=== PATIENT | female | born 1970 | race Caucasian/White ===

== ENCOUNTER 2017-05-23 17:03 | Emergency (ER) | payer BC ==
[2017-05-23] MEDS ORDERED: methylPREDNISolone Sodium Succinate 125 MG/2 ML SDV IVPUSH ONE (17:39)
[2017-05-23] MEDS ORDERED: Sodium Chloride 0.9% 2.5 ML Syringe FLUSH PRN (17:39)
[2017-05-23] MEDS ORDERED: Sodium Chloride 0.9% 10 ML Syringe FLUSH PRN (17:39)
[2017-05-23 18:28] LABS: CHLORIDE,CL 109 mmol/L (98-110); SODIUM,NA 139 mmol/L (136-146)
--- NOTE | 2017-05-23 18:36 | EDM.PDOC ---
ED HPI GENERAL MEDICAL PROBLEM - General Chief Complaint: Neck Problem Stated Complaint: PT HAS NECK PAIN AND BODY PAIN Time Seen by Provider: 05/23/17 18:30 Source of Information: Reports: Patient History Limitations: Reports: No Limitations - History of Present Illness INITIAL COMMENTS - FREE TEXT/NARRATIVE: HISTORY AND PHYSICAL: []46-year-old female presenting with neck and body pain History of Present Illness: []She has history of arthritis she received a cortisone injection recently to her right shoulder She has had steroids in the past Patient took Flexeril and a medication at home without much relief Review of Systems: As per history of present illness and below otherwise all systems reviewed and negative. Past medical history: As per history of present illness and as reviewed below otherwise noncontributory. Surgical history: As per history of present illness and as reviewed below otherwise noncontributory. Social history: No reported history of drug or alcohol abuse. Family history: As per history of present illness and as reviewed below otherwise noncontributory. Physical exam: Alert and oriented female answering questions appropriatelyof breath noted HEENT: Atraumatic, normocehpalic, pupils reactive, negative for conjunctival pallor or scleral icterus, mucous membranes moist, throat clear, neck supple, nontender, trachea midline. Lungs: Clear to auscultation, breath sounds equal bilaterally, chest non tender. Heart: S1S2, regular, negative for clicks, rubs, or JVD. Abdomen: Soft, nondistended, nontender. Negative for masses or hepatossplenmegaly. Negative for costovertebral tenderness. Pelvis: Stable nontender. Genitourinary: Deferred. Rectal: Deferred Extremities: Atraumatic, negative for cords or calf pain. Neurovascular unremarkable. Neuro: Awake, alert, oriented. Cranial nerves II through XII unremarkable. Cerebellum unremarkable. Motor and sensory unremarkable throughout. Exam nonfocal. Diagnostics: [] Therapeutics: []SoluMedrol IM Impression: []Arthritic flareup Plan: []Discharge to home Place on Medrol Dosepak follow up with your primary care Definitive disposition and diagnosis as appropriate pending reevaluation and review of above. neck area Pain Score (Numeric/FACES): 6 - Related Data Allergies Allergy/AdvReac Type Severity Reaction Status Date / Time pine nut Allergy Anaphylactic Verified 05/23/17 17:16 Shock propoxyphene [From Darvon] Allergy Hallucinati Verified 05/23/17 17:16 ons Home Meds: Home Meds Albuterol [IJP: Ventolin HFA] 1 inh INH ASDIRECTED 05/23/17 [History] Meloxicam [Mobic] 1 tab PO BID 05/23/17 [History] methylPREDNISolone [Medrol] 4 mg PO ASDIRECTED #1 dosepk 05/23/17 [Rx] Past Medical History HEENT History: Reports: None Cardiovascular History: Reports: None Respiratory History: Reports: Asthma Gastrointestinal History: Reports: None Genitourinary History: Reports: None 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: Musculoskeletal History: Reports: Arthritis, Other (See Below) Other Musculoskeletal History: spodylosis Neurological History: Reports: None Psychiatric History: Reports: None Endocrine/Metabolic History: Reports: None Hematologic History: Reports: None Immunologic History: Reports: None Oncologic (Cancer) History: Reports: None Dermatologic History: Reports: None - Infectious Disease History Infectious Disease History: Reports: None - Past Surgical History GI Surgical History: Reports: Appendectomy Female Surgical History: Reports: None Social & Family History - Family History Family Medical History: Noncontributory - Tobacco Use Smoking Status *Q: Current Every Day Smoker Years of Tobacco use: 30 Packs/Tins Daily: 1 - Caffeine Use Caffeine Use: Reports: Coffee - Recreational Drug Use Recreational Drug Use: No Review of Systems - Review of Systems Review Of Systems: ROS reveals no pertinent complaints other than HPI. ED EXAM, GENERAL - Physical Exam Exam: See Below (see dictation) Course - Vital Signs Last Recorded V/S: Last Vital Signs Temp 36.6 C 05/23/17 17:18 Pulse 90 05/23/17 17:18 Resp 18 05/23/17 17:18 BP 125/88 05/23/17 17:18 Pulse Ox 98 05/23/17 17:18 - Orders/Labs/Meds Orders: Active Orders 24 hr Category Date Time Status Sodium Chloride 0.9% [Saline Flush] Med 05/23/17 17:39 Active 10 ml FLUSH ASDIRECTED PRN Sodium Chloride 0.9% [Saline Flush] Med 05/23/17 17:39 Active 2.5 ml FLUSH ASDIRECTED PRN Saline Lock Insert [OM.PC] Stat Oth 05/23/17 17:38 Ordered Medication Orders Sodium Chloride (Saline Flush) 10 ml FLUSH ASDIRECTED PRN PRN Reason: Keep Vein Open Last Admin: 05/23/17 18:02 Dose: 10 ml Sodium Chloride (Saline Flush) 2.5 ml FLUSH ASDIRECTED PRN PRN Reason: Keep Vein Open Last Admin: 05/23/17 18:03 Dose: 2.5 ml Labs: Laboratory Tests 05/23/17 05/23/17 Range/Units 18:02 18:02 WBC 7.39 (4.0-11.0) K/uL RBC 5.39 (4.30-5.90) M/uL Hgb 15.2 (12.0-16.0) g/dL Hct 46.0 (36.0-46.0) % MCV 85.3 (80.0-98.0) fL MCH 28.2 (27.0-32.0) pg MCHC 33.0 (31.0-37.0) g/dL RDW Std Deviation 49.4 (28.0-62.0) fl RDW Coeff of Linda 16 H (11.0-15.0) % Plt Count 418 H (150-400) K/uL MPV 9.50 (7.40-12.00) fL Neut % (Auto) 47.4 L (48.0-80.0) % Lymph % (Auto) 32.3 (16.0-40.0) % [place] % (Auto) 15.3 H (0.0-15.0) % Eos % (Auto) 4.6 (0.0-7.0) % Baso % (Auto) 0.4 (0.0-1.5) % Neut # (Auto) 3.5 (1.4-5.7) K/uL Lymph # (Auto) 2.4 (0.6-2.4) K/uL [place] # (Auto) 1.1 H (0.0-0.8) K/uL Eos # (Auto) 0.3 (0.0-0.7) K/uL Baso # (Auto) 0.0 (0.0-0.1) K/uL Nucleated RBC % 0.0 /100WBC Nucleated RBCs # 0 K/uL Sodium 139 (136-146) mmol/L Potassium 4.1 (3.5-5.1) mmol/L Chloride 109 (98-110) mmol/L Carbon Dioxide 21 (21-31) mmol/L BUN 13 (6.0-23.0) mg/dL Creatinine 0.7 (0.6-1.5) mg/dL Est Cr Clr Drug Dosing 99.73 mL/min Estimated GFR (MDRD) > 60.0 ml/min Glucose 116 H (60-110) mg/dL Calcium 9.2 (8.8-10.8) mg/dL Total Bilirubin 0.2 (0.1-1.5) mg/dL AST 16 (5-40) IU/L ALT 17 (8-54) IU/L Alkaline Phosphatase 52 (40-150) Total Protein 7.2 (6.0-8.0) g/dL Albumin 3.7 (3.5-5.0) g/dL Globulin 3.5 (2.0-3.5) g/dL Albumin/Globulin Ratio 1.1 L (1.3-2.8) Meds: Medications Generic Name Dose Route Start Last Admin Trade Name Freq PRN Reason Stop Dose Admin Sodium Chloride 10 ml 05/23/17 17:39 05/23/17 18:02 Saline Flush FLUSH 10 ml ASDIRECTED PRN Administration Keep Vein Open Sodium Chloride 2.5 ml 05/23/17 17:39 05/23/17 18:03 Saline Flush FLUSH 2.5 ml ASDIRECTED PRN Administration Keep Vein Open Discontinued Medications Generic Name Dose Route Start Last Admin Trade Name Freq PRN Reason Stop Dose Admin Methylprednisolone Sodium Succinate 125 mg 05/23/17 17:39 05/23/17 18:02 Solu-Medrol IVPUSH 05/23/17 17:40 125 mg ONETIME ONE Administration Morphine Sulfate 2 mg 05/23/17 18:37 05/23/17 18:42 Morphine IV 05/23/17 18:38 2 mg ONETIME ONE Administration Departure - Departure Time of Disposition: 18:35 Disposition: Home, Self-Care 01 Condition: Good Clinical Impression: Pain - Discharge Information Prescriptions: methylPREDNISolone [Medrol] 4 mg PO ASDIRECTED #1 dosepk Referrals: PCP,None [Primary Care Provider] - Forms: ED Department Discharge Additional Instructions: The following information is given to patients seen in the emergency department who are being discharged to home. This information is to outline your options for follow-up care. We provide all patients seen in our emergency department with a follow-up referral. The need for follow-up, as well as the timing and circumstances, are variable depending upon the specifics of your emergency department visit. If you don't have a primary care physician on staff, we will provide you with a referral. We always advise you to contact your personal physician following an emergency department visit to inform them of the circumstance of the visit and for follow-up with them and/or the need for any referrals to a consulting specialist. The emergency department will also refer you to a specialist when appropriate. This referral assures that you have the opportunity for followup care with a specialist. All of these measure are taken in an effort to provide you with optimal care, which includes your followup. Under all circumstances we always encourage you to contact your private physician who remains a resource for coordinating your care. When calling for followup care, please make the office aware that this follow-up is from your recent emergency room visit. If for any reason you are refused follow-up, please contact the [facility] emergency department at and asked to speak to the emergency department charge nurse. Medrol Dosepak was sent to your pharmacy of choice Follow-up with your provider Thursday - My Orders Last 24 Hours: My Active Orders 05/23/17 17:38 Saline Lock Insert [OM.PC] Stat 05/23/17 17:39 Sodium Chloride 0.9% [Saline Flush] 10 ml FLUSH ASDIRECTED PRN Sodium Chloride 0.9% [Saline Flush] 2.5 ml FLUSH ASDIRECTED PRN - Assessment/Plan Last 24 Hours: My Active Orders 05/23/17 17:38 Saline Lock Insert [OM.PC] Stat 05/23/17 17:39 Sodium Chloride 0.9% [Saline Flush] 10 ml FLUSH ASDIRECTED PRN Sodium Chloride 0.9% [Saline Flush] 2.5 ml FLUSH ASDIRECTED PRN
[2017-05-23] MEDS ORDERED: Morphine 10 MG/ML Syringe IV ONE (18:37)
[2017-05-23 19:00] VITALS: BP 131/84
== END 2017-05-23 18:54 | disposition home or self-care (01) ==
LOC: MW.ED 17:03
DX: M19.90 Unspecified osteoarthritis, unspecified site (principal); M54.2 Cervicalgia; F17.210 Nicotine dependence, cigarettes, uncomplicated
CPT/HCPCS: 36415; 80053; 85025; 96374; 96375; 99283; J2270; J2930; 99282

== ENCOUNTER 2018-10-20 18:33 | Emergency (ER) | payer BC ==
[2018-10-20 19:20] VITALS: BP 124/75
[2018-10-20] MEDS ORDERED: Acetaminophen/HYDROcodone 325-7.5 MG Tab PO ONE (19:24)
[2018-10-20] MEDS ORDERED: Benzocaine 20% Topical Spray UD MUCMEM ONE (19:24)
[2018-10-20] MEDS ORDERED: Lidocaine 2% Viscous Solution 15 ML Cup PO ONE (19:24)
--- NOTE | 2018-10-20 19:28 | EDM.PDOC ---
ED HPI GENERAL MEDICAL PROBLEM - General Chief Complaint: General Stated Complaint: BAD TOOTH Time Seen by Provider: 10/20/18 19:20 - History of Present Illness INITIAL COMMENTS - FREE TEXT/NARRATIVE: HISTORY AND PHYSICAL: History of present illness: The patient is a 48-year-old female who presents with known history of problem with her left upper premolar tooth, tooth #13, and she's been putting off getting it fixed as the filling had fallen out but she had no pain. She presents because of new pain that started the last 24 hours. She has an appointment tomorrow with the dentist for evaluation and has placed an over-the- counter temporary filling but is having persistent pain and she is concerned about some swelling. She otherwise has no systemic complaints Review of systems: As per history of present illness and below otherwise all systems reviewed and negative. Past medical history: As per history of present illness and as reviewed below otherwise noncontributory. Surgical history: As per history of present illness and as reviewed below otherwise noncontributory. Social history: No reported history of drug or alcohol abuse. Family history: As per history of present illness and as reviewed below otherwise noncontributory. Physical exam: HEENT: Atraumatic, normocephalic, pupils reactive, negative for conjunctival pallor or scleral icterus, mucous membranes moist, throat clear, neck supple, nontender, trachea midline. Gross facial swelling appreciated, there are multiple old silver fillings and some missing teeth but the tooth in question is the left upper premolar, #13 where there is a temporary filling in place as an obvious defect in the tooth laterally, there is some minimal gum swelling but no fluctuance Lungs: Clear to auscultation, breath sounds equal bilaterally, chest nontender. Heart: S1S2, regular and rhythm no overt murmurs Abdomen: Soft, nondistended, nontender. NABS Pelvis: Deferred Genitourinary: Deferred. Rectal: Deferred. Extremities: Atraumatic, full range of motion. Neurovascular unremarkable. Neuro: Awake, alert, oriented. Cranial nerves II through XII unremarkable. Cerebellum unremarkable. Motor and sensory unremarkable throughout. Exam nonfocal. Diagnostics: [] Therapeutics: Dental balls, [place] Impression: Dental pain with dental fracture Definitive disposition and diagnosis as appropriate pending reevaluation and review of above. 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: Musculoskeletal History: Reports: Arthritis, Other (See Below) Other Musculoskeletal History: spodylosis Neurological History: Reports: None Psychiatric History: Reports: None Endocrine/Metabolic History: Reports: None Hematologic History: Reports: None Immunologic History: Reports: None Oncologic (Cancer) History: Reports: None Dermatologic History: Reports: None - Infectious Disease History Infectious Disease History: Reports: None - Past Surgical History GI Surgical History: Reports: Appendectomy Female Surgical History: Reports: None, Breast Implant Social & Family History - Family History Family Medical History: Noncontributory - Tobacco Use Smoking Status *Q: Current Every Day Smoker Years of Tobacco use: 20 Packs/Tins Daily: 1 - Caffeine Use Caffeine Use: Reports: Coffee, Soda - Recreational Drug Use Recreational Drug Use: No ED ROS GENERAL - Review of Systems Review Of Systems: ROS reveals no pertinent complaints other than HPI. ED EXAM, GENERAL - Physical Exam Exam: See Below (See dictation) Course - Vital Signs Last Recorded V/S: Last Vital Signs Temp 36.9 C 10/20/18 19:18 Pulse 83 10/20/18 19:18 Resp 18 10/20/18 19:18 BP 124/75 10/20/18 19:18 Pulse Ox 96 10/20/18 19:18 - Orders/Labs/Meds Orders: Active Orders 24 hr Category Date Time Status Acetaminophen/HYDROcodone [[place] 325-7.5 MG] Med 10/20/18 19:24 Once 1 tab PO ONETIME ONE Benzocaine [Hurricaine One 20%] Med 10/20/18 19:24 Once 2 each MUCMEM ONETIME ONE Lidocaine 2% [Xylocaine 2% Viscous] Med 10/20/18 19:24 Once 15 ml PO ONETIME ONE Departure - Departure Time of Disposition: 19:27 Disposition: Home, Self-Care 01 Condition: Good Clinical Impression: Pain, dental Tooth fracture Qualifiers: Encounter type: initial encounter Fracture type: closed Qualified Code(s): S02.5XXA - Fracture of tooth (traumatic), initial encounter for closed fracture - Discharge Information Referrals: PCP,None [Primary Care Provider] - Additional Instructions: The following information is given to patients seen in the emergency department who are being discharged to home. This information is to outline your options for follow-up care. We provide all patients seen in our emergency department with a follow-up referral. The need for follow-up, as well as the timing and circumstances, are variable depending upon the specifics of your emergency department visit. If you don't have a primary care physician on staff, we will provide you with a referral. We always advise you to contact your personal physician following an emergency department visit to inform them of the circumstance of the visit and for follow-up with them and/or the need for any referrals to a consulting specialist. The emergency department will also refer you to a specialist when appropriate. This referral assures that you have the opportunity for followup care with a specialist. All of these measure are taken in an effort to provide you with optimal care, which includes your followup. Under all circumstances we always encourage you to contact your private physician who remains a resource for coordinating your care. When calling for followup care, please make the office aware that this follow-up is from your recent emergency room visit. If for any reason you are refused follow-up, please contact the [facility] emergency department at and ask to speak to the emergency department charge nurse. [facility] Primary care- Internal Medicine and Family [address] [address] Use dental balls as prescribed to him from the ER for pain management as well as [id number] Tylenol and ibuprofen. Pain pill here that should enable you to get some rest tonight. Please take antibiotics as prescribed, amoxicillin. These keep your appointment tomorrow with the dentist and return to ER as needed and as discussed - My Orders Last 24 Hours: My Active Orders 10/20/18 19:24 Acetaminophen/HYDROcodone [[place] 325-7.5 MG] 1 tab PO ONETIME ONE Benzocaine [Hurricaine One 20%] 2 each MUCMEM ONETIME ONE Lidocaine 2% [Xylocaine 2% Viscous] 15 ml PO ONETIME ONE - Assessment/Plan Last 24 Hours: My Active Orders 10/20/18 19:24 Acetaminophen/HYDROcodone [[place] 325-7.5 MG] 1 tab PO ONETIME ONE Benzocaine [Hurricaine One 20%] 2 each MUCMEM ONETIME ONE Lidocaine 2% [Xylocaine 2% Viscous] 15 ml PO ONETIME ONE
== END 2018-10-20 19:39 | disposition home or self-care (01) ==
LOC: MW.ED 18:33
DX: K03.81 Cracked tooth (principal); Z88.8 Allergy status to other drugs, medicaments and biological substances; Z79.899 Other long term (current) drug therapy; F17.210 Nicotine dependence, cigarettes, uncomplicated
CPT/HCPCS: 99282; A9270

== ENCOUNTER 2019-12-19 16:15 | Emergency (ER) | payer BC ==
[2019-12-19] MEDS ORDERED: Dexamethasone 10 MG/ML SDV IVPUSH ONE (16:29)
[2019-12-19] MEDS ORDERED: Famotidine 20 MG/2 ML SDV IVPUSH ONE (16:29)
[2019-12-19] MEDS ORDERED: diphenhydrAMINE 50 MG/ML SDV IVPUSH ONE (16:29)
[2019-12-19] MEDS ORDERED: Dexamethasone 10 MG/ML SDV ONE (16:30)
[2019-12-19] MEDS ORDERED: diphenhydrAMINE 50 MG/ML SDV ONE (16:30)
[2019-12-19] MEDS ORDERED: Famotidine 20 MG/2 ML SDV ONE (16:30)
[2019-12-19] MEDS ORDERED: Sodium Chloride 0.9% 2.5 ML Syringe FLUSH PRN (16:31)
[2019-12-19] MEDS ORDERED: Sodium Chloride 0.9% 10 ML Syringe FLUSH PRN (16:31)
[2019-12-19] MEDS ORDERED: Sodium Chloride 0.9% 10 ML SDV IV PRN (16:31)
--- NOTE | 2019-12-19 16:39 | EDM.PDOC ---
ED HPI GENERAL MEDICAL PROBLEM - General Chief Complaint: Allergic Reaction Stated Complaint: BREATHING PROBLEMS Time Seen by Provider: 12/19/19 16:21 - History of Present Illness INITIAL COMMENTS - FREE TEXT/NARRATIVE: History of present illness: Patient presents with difficulty breathing itchy lips itchy throat itchy eyes just after receiving her allergy therapy injections at the allergy clinic at 3: 30 PM this afternoon. She is never had this reaction to her treatments before she does have multiple anaphylactic food and environmental allergies. Denies any dizziness lightheadedness but she is having some difficulty breathing and itching no rash nothing seems to make it worse Caroline made it somewhat better prior to arrival [] Review of systems: As per history of present illness and below otherwise all systems reviewed and negative. Past medical history: As per history of present illness and as reviewed below otherwise noncontributory. Surgical history: As per history of present illness and as reviewed below otherwise noncontributory. Social history: No reported history of drug or alcohol abuse. Family history: As per history of present illness and as reviewed below otherwise noncontributory. Physical exam: HEENT: Atraumatic, normocephalic, pupils reactive, negative for conjunctival pallor or scleral icterus, sclera are injected mucous membranes moist, throat clear, neck supple, nontender, trachea midline. She does appear mildly limitus about her face Lungs: Clear to auscultation, breath sounds equal bilaterally, chest nontender. Heart: S1S2, regular, negative for clicks, rubs, or JVD. Abdomen: Soft, nondistended, nontender. Negative for masses or hepatosplenomegaly. Negative for costovertebral tenderness. Pelvis: Stable nontender. Genitourinary: Deferred. Rectal: Deferred. Extremities: Atraumatic, negative for cords or calf pain. Neurovascular unremarkable. Neuro: Awake, alert, oriented. Cranial nerves II through XII unremarkable. Cerebellum unremarkable. Motor and sensory unremarkable throughout. Exam nonfocal. Diagnostics: [] Therapeutics: She received 25 of Benadryl 20 of Pepcid and 10 of Decadron IV as well as 4 puffs of albuterol metered-dose inhaler and she will be observed and reassessed. [] Impression: Allergic reaction [] Plan: [He was reassessed after observation in the ED her vital signs are stable oxygen sats are 99% on room air she feels better would like to go home I prescribed EpiPen autoinjectors for her she is to follow-up with her regular doctor return to the ED if she is worsening] Definitive disposition and diagnosis as appropriate pending reevaluation and review of above. - Related Data Allergies Allergy/AdvReac Type Severity Reaction Status Date / Time pine nut Allergy Anaphylactic Verified 12/19/19 16:25 Shock propoxyphene [From Darvon] Allergy Hallucinati Verified 12/19/19 16:25 ons Home Meds: Home Meds Albuterol [IJP: Ventolin HFA] 1 inh INH ASDIRECTED 05/23/17 [History] Dextroamphetamine/Amphetamine [Adderall] 30 mg PO DAILY 12/19/19 [History] EPINEPHrine [Epipen 2-Sandip] 0.3 mg IJ ONETIME #2 auto.injct MDD 2 12/19/19 [Rx] Fluticasone/Vilanterol [Breo Ellipta 200-25 MCG Inhalation Kit] 1 puff .ROUTE DAILY 12/19/19 [History] Pimecrolimus 1 dose .ROUTE PRN 12/19/19 [History] Past Medical History HEENT History: Reports: None Cardiovascular History: Reports: None Respiratory History: Reports: Asthma Gastrointestinal History: Reports: None Genitourinary History: Reports: None [employer] History: Reports: Musculoskeletal History: Reports: Arthritis, Other (See Below) Other Musculoskeletal History: spodylosis Neurological History: Reports: None Psychiatric History: Reports: None Endocrine/Metabolic History: Reports: None Hematologic History: Reports: None Immunologic History: Reports: None Oncologic (Cancer) History: Reports: None Dermatologic History: Reports: None - Infectious Disease History Infectious Disease History: Reports: None - Past Surgical History GI Surgical History: Reports: Appendectomy Female Surgical History: Reports: None, Breast Implant Social & Family History - Family History Family Medical History: Noncontributory - Tobacco Use Smoking Status *Q: Current Every Day Smoker Years of Tobacco use: 20 Packs/Tins Daily: 1 - Caffeine Use Caffeine Use: Reports: Coffee, Soda ED ROS ALLERGIC REACTION - Review of Systems Review Of Systems: See Below ED EXAM GENERAL NO PERIP PULSE - Physical Exam Exam: See Below Course - Vital Signs Last Recorded V/S: Last Vital Signs Temp 36.7 C 12/19/19 16:22 Pulse 114 H 12/19/19 16:22 Resp 20 12/19/19 16:22 BP 113/83 12/19/19 16:22 Pulse Ox 94 L 12/19/19 16:22 - Orders/Labs/Meds Orders: Active Orders 24 hr Category Date Time Status RT Post Treatment Assessment [RC] Click to Edit Care 12/19/19 17:02 Active RT Pre-Treatment Assessment [RC] Click to Edit Care 12/19/19 17:02 Active Sodium Chloride 0.9% [Normal Saline] Med 12/19/19 16:31 Active 10 ml IV ASDIRECTED PRN Sodium Chloride 0.9% [Saline Flush] Med 12/19/19 16:31 Active 10 ml FLUSH ASDIRECTED PRN Sodium Chloride 0.9% [Saline Flush] Med 12/19/19 16:31 Active 2.5 ml FLUSH ASDIRECTED PRN Peripheral IV Insertion Adult [OM.PC] Stat Oth 12/19/19 16:31 Ordered Medication Orders Sodium Chloride (Saline Flush) 10 ml FLUSH ASDIRECTED PRN PRN Reason: Keep Vein Open Sodium Chloride (Saline Flush) 2.5 ml FLUSH ASDIRECTED PRN PRN Reason: Keep Vein Open Sodium Chloride (Normal Saline) 10 ml IV ASDIRECTED PRN PRN Reason: IV Use Meds: Medications Generic Name Dose Route Start Last Admin Trade Name Freq PRN Reason Stop Dose Admin Sodium Chloride 10 ml 12/19/19 16:31 Saline Flush FLUSH ASDIRECTED PRN Keep Vein Open Sodium Chloride 2.5 ml 12/19/19 16:31 Saline Flush FLUSH ASDIRECTED PRN Keep Vein Open Sodium Chloride 10 ml 12/19/19 16:31 Normal Saline IV ASDIRECTED PRN IV Use Discontinued Medications Generic Name Dose Route Start Last Admin Trade Name Freq PRN Reason Stop Dose Admin Albuterol 8 gm 12/19/19 17:01 12/19/19 17:12 Ventolin Hfa INH 12/19/19 17:02 4 puff ONETIME ONE Administration Dexamethasone 10 mg 12/19/19 16:29 12/19/19 16:33 Dexamethasone IVPUSH 12/19/19 16:30 10 mg ONETIME ONE Administration Dexamethasone Confirm 12/19/19 16:30 12/19/19 16:59 Dexamethasone Administered 12/19/19 16:31 Not Given Dose 10 mg .ROUTE .STK-MED ONE Diphenhydramine HCl 25 mg 12/19/19 16:29 12/19/19 16:33 Benadryl IVPUSH 12/19/19 16:30 25 mg ONETIME ONE Administration Diphenhydramine HCl Confirm 12/19/19 16:30 12/19/19 16:59 Benadryl Administered 12/19/19 16:31 Not Given Dose 50 mg .ROUTE .STK-MED ONE Famotidine 20 mg 12/19/19 16:29 12/19/19 16:34 Pepcid IVPUSH 12/19/19 16:30 20 mg ONETIME ONE Administration Famotidine Confirm 12/19/19 16:30 12/19/19 16:59 Pepcid Administered 12/19/19 16:31 Not Given Dose 20 mg .ROUTE .STK-MED ONE Departure - Departure Time of Disposition: 17:19 Disposition: Home, Self-Care 01 Condition: Good Clinical Impression: Allergic reaction Qualifiers: Encounter type: initial encounter Qualified Code(s): T78.40XA - Allergy, unspecified, initial encounter - Discharge Information *PRESCRIPTION DRUG MONITORING PROGRAM REVIEWED*: Not Applicable *COPY OF PRESCRIPTION DRUG MONITORING REPORT IN PATIENT SANGEETHA: Not Applicable Prescriptions: EPINEPHrine [Epipen 2-Sandip] 0.3 mg IJ ONETIME #2 auto.injct MDD 2 Instructions: Allergies, Adult, [id number] Forms: ED Department Discharge Additional Instructions: The following information is given to patients seen in the emergency department who are being discharged to home. This information is to outline your options for follow-up care. We provide all patients seen in our emergency department with a follow-up referral. The need for follow-up, as well as the timing and circumstances, are variable depending upon the specifics of your emergency department visit. If you don't have a primary care physician on staff, we will provide you with a referral. We always advise you to contact your personal physician following an emergency department visit to inform them of the circumstance of the visit and for follow-up with them and/or the need for any referrals to a consulting specialist. The emergency department will also refer you to a specialist when appropriate. This referral assures that you have the opportunity for follow-up care with a specialist. All of these measure are taken in an effort to provide you with optimal care, which includes your follow-up. Under all circumstances we always encourage you to contact your private physician who remains a resource for coordinating your care. When calling for follow-up care, please make the office aware that this follow-up is from your recent emergency room visit. If for any reason you are refused follow-up, please contact the [facility] Emergency Department at and asked to speak to the emergency department charge nurse. Sepsis Event Note - Evaluation Sepsis Screening Result: No Definite Risk - Focused Exam Vital Signs: Vital Signs Temp Pulse Resp BP Pulse Ox 12/19/19 16:22 36.7 C 114 H 20 113/83 94 L Date Exam was Performed: 12/19/19 Time Exam was Performed: 17:16 - My Orders Last 24 Hours: My Active Orders 12/19/19 16:31 Sodium Chloride 0.9% [Normal Saline] 10 ml IV ASDIRECTED PRN Sodium Chloride 0.9% [Saline Flush] 10 ml FLUSH ASDIRECTED PRN Sodium Chloride 0.9% [Saline Flush] 2.5 ml FLUSH ASDIRECTED PRN Peripheral IV Insertion Adult [OM.PC] Stat 12/19/19 17:02 RT Post Treatment Assessment [RC] Click to Edit RT Pre-Treatment Assessment [RC] Click to Edit - Assessment/Plan Last 24 Hours: My Active Orders 12/19/19 16:31 Sodium Chloride 0.9% [Normal Saline] 10 ml IV ASDIRECTED PRN Sodium Chloride 0.9% [Saline Flush] 10 ml FLUSH ASDIRECTED PRN Sodium Chloride 0.9% [Saline Flush] 2.5 ml FLUSH ASDIRECTED PRN Peripheral IV Insertion Adult [OM.PC] Stat 12/19/19 17:02 RT Post Treatment Assessment [RC] Click to Edit RT Pre-Treatment Assessment [RC] Click to Edit
[2019-12-19] MEDS ORDERED: Albuterol 8 GM Inhaler INH ONE (17:01)
[2019-12-19 22:10] VITALS: BP 134/81; PULSE 96
== END 2019-12-19 17:45 | disposition home or self-care (01) ==
LOC: MW.ED 16:15
DX: T78.40XA Allergy, unspecified, initial encounter (principal); F17.210 Nicotine dependence, cigarettes, uncomplicated; Z91.018 Allergy to other foods; Z88.8 Allergy status to other drugs, medicaments and biological substances; J45.909 Unspecified asthma, uncomplicated
CPT/HCPCS: 96374; 96375; 99283; A9270; J1100; J1200; S0028; J3490

== ENCOUNTER 2021-04-23 22:21 | Emergency (ER) | payer BC ==
[2021-04-24 00:36] VITALS: BP 130/86; PULSE 105
[2021-04-24] MEDS ORDERED: methylPREDNISolone Sodium Succinate 125 MG/2 ML SDV IVPUSH ONE (00:48)
[2021-04-24] MEDS ORDERED: Sodium Chloride 0.9% 1,000 ML IV ONE (00:48)
--- NOTE | 2021-04-24 00:49 | EDM.PDOC ---
ED HPI GENERAL MEDICAL PROBLEM - General Chief Complaint: Respiratory Problem Stated Complaint: FEVER, CONGESTION, SINUS PRESSURE Time Seen by Provider: 04/24/21 00:40 Source of Information: Reports: Patient History Limitations: Reports: No Limitations - History of Present Illness INITIAL COMMENTS - FREE TEXT/NARRATIVE: Patient is a 50-year-old female who presents today for past few days increasing cough shortness of breath and fatigue. Patient she is a smoker and has a nebulizer and inhaler at home has not been providing much relief for her shortness of breath. States she is now has a productive cough with green mucus. She still tolerating p.o. but has no nausea or vomiting. She denies any chest pain or abdominal pain. Chest Pain Score (Numeric/FACES): 3 - Related Data Allergies Allergy/AdvReac Type Severity Reaction Status Date / Time pine nut Allergy Anaphylactic Verified 12/19/19 16:25 Shock propoxyphene [From Darvon] Allergy Hallucinati Verified 12/19/19 16:25 ons Home Meds: Home Meds Albuterol [IJP: Ventolin HFA] 1 inh INH ASDIRECTED 05/23/17 [History] Dextroamphetamine/Amphetamine [Adderall] 30 mg PO DAILY 12/19/19 [History] EPINEPHrine [Epipen 2-Sandip] 0.3 mg IJ ONETIME #2 auto.injct MDD 2 12/19/19 [Rx] EPINEPHrine [Epipen] 0.3 mg IM DAILYBH #2 ml MDD 2 12/19/19 [Rx] Fluticasone/Vilanterol [Breo Ellipta 200-25 MCG Inhalation Kit] 1 puff .ROUTE DAILY 12/19/19 [History] Pimecrolimus 1 dose .ROUTE PRN 12/19/19 [History] Azithromycin 500 mg PO DAILY 4 Days #4 tablet 04/24/21 [Rx] Past Medical History HEENT History: Reports: None Cardiovascular History: Reports: None Respiratory History: Reports: Asthma Gastrointestinal History: Reports: None Genitourinary History: Reports: None [employer] JOCKEY History: Reports: Musculoskeletal History: Reports: Arthritis, Other (See Below) Other Musculoskeletal History: spodylosis Neurological History: Reports: None Psychiatric History: Reports: None Endocrine/Metabolic History: Reports: None Hematologic History: Reports: None Immunologic History: Reports: None Oncologic (Cancer) History: Reports: None Dermatologic History: Reports: None - Infectious Disease History Infectious Disease History: Reports: None - Past Surgical History GI Surgical History: Reports: Appendectomy Female Surgical History: Reports: None, Breast Implant Social & Family History - Family History Family Medical History: No Pertinent Family History - Tobacco Use Tobacco Use Status *Q: Current Every Day Tobacco User Years of Tobacco use: 25 Packs/Tins Daily: 0.5 - Caffeine Use Caffeine Use: Reports: None - Recreational Drug Use Recreational Drug Use: No ED ROS GENERAL - Review of Systems Review Of Systems: See Below Constitutional: Reports: No Symptoms HEENT: Reports: No Symptoms Respiratory: Reports: Shortness of Breath, Cough Cardiovascular: Reports: No Symptoms Endocrine: Reports: No Symptoms GI/Abdominal: Reports: No Symptoms : Reports: No Symptoms Musculoskeletal: Reports: No Symptoms Skin: Reports: No Symptoms Neurological: Reports: No Symptoms Psychiatric: Reports: No Symptoms Hematologic/Lymphatic: Reports: No Symptoms Immunologic: Reports: No Symptoms ED EXAM, GENERAL - Physical Exam Exam: See Below Exam Limited By: No Limitations General Appearance: Alert, WD/WN, No Apparent Distress Head: Atraumatic, Normocephalic Respiratory/Chest: No Respiratory Distress, Crackles Cardiovascular: Normal Peripheral Pulses, Regular Rate, Rhythm GI/Abdominal: Normal Bowel Sounds, Soft, Non-Tender Extremities: Normal Inspection, Normal Range of Motion Neurological: Alert, Oriented, Normal Cognition, Normal Gait Course - Vital Signs Last Recorded V/S: Last Vital Signs Temp 98.7 F 04/24/21 00:34 Pulse 105 H 04/24/21 00:34 Resp 18 04/24/21 00:34 BP 130/86 04/24/21 00:34 Pulse Ox 93 L 04/24/21 00:34 - Orders/Labs/Meds Labs: Laboratory Tests 04/24/21 04/24/21 Range/Units 01:00 01:00 WBC 17.11 H (4.0-11.0) K/uL RBC 5.49 (4.30-5.90) M/uL Hgb 15.2 (12.0-16.0) g/dL Hct 45.0 (36.0-46.0) % MCV 82.0 (80.0-98.0) fL MCH 27.7 (27.0-32.0) pg MCHC 33.8 (31.0-37.0) g/dL RDW Std Deviation 40.5 (28.0-62.0) fl RDW Coeff of Linda 14 (11.0-15.0) % Plt Count 393 (150-400) K/uL MPV 9.70 (7.40-12.00) fL Add Manual Diff YES Neutrophils % (Manual) 63 (48.0-80.0) % Band Neutrophils % 7 % Lymphocytes % (Manual) 26 (16.0-40.0) % Monocytes % (Manual) 4 (0.0-15.0) % Absolute Seg Neuts 10.8 H (1.4-5.7) Band Neutrophils # 1.2 Lymphocytes # (Manual) 4.4 H (0.6-2.4) Monocytes # (Manual) 0.7 (0.0-0.8) Sodium 136 (136-145) mmol/L Potassium 4.2 (3.5-5.1) mmol/L Chloride 103 (98-107) mmol/L Carbon Dioxide 25.7 (21.0-32.0) mmol/L BUN 10 (7.0-18.0) mg/dL Creatinine 0.9 (0.6-1.0) mg/dL Est Cr Clr Drug Dosing 74.34 mL/min Estimated GFR (MDRD) > 60.0 ml/min Glucose 77 (74-106) mg/dL Calcium 8.2 L (8.5-10.1) mg/dL Total Bilirubin 0.3 (0.2-1.0) mg/dL AST 18 (15-37) IU/L ALT 34 (14-63) IU/L Alkaline Phosphatase 67 (46-116) U/L Total Protein 7.4 (6.4-8.2) g/dL Albumin 3.4 (3.4-5.0) g/dL Globulin 4.0 (2.6-4.0) g/dL Albumin/Globulin Ratio 0.9 (0.9-1.6) Meds: Medications Discontinued Medications Generic Name Dose Route Start Last Admin Trade Name Freq PRN Reason Stop Dose Admin Azithromycin 500 mg 04/24/21 01:56 Azithromycin 250 Mg Tab PO 04/24/21 01:57 NOW STA Sodium Chloride 1,000 mls @ 999 mls/hr 04/24/21 00:48 04/24/21 01:24 Normal Saline IV 04/24/21 01:48 999 mls/hr .BOLUS ONE Administration Methylprednisolone Sodium Succinate 125 mg 04/24/21 00:48 04/24/21 01:23 Methylprednisolone Sodium Succinate 125 Mg/2 Ml Sdv IVPUSH 04/24/21 00:49 125 mg ONETIME ONE Administration - Re-Assessments/Exams Free Text/Narrative Re-Assessment/Exam: 04/24/21 02:12 Patient x-ray does not show any pneumonia. Patient likely has COPD exacerbation. Patient sent home with steroids and azithromycin. Departure - Departure Time of Disposition: 02:12 Disposition: Home, Self-Care 01 Condition: Good Clinical Impression: COPD exacerbation - Discharge Information *PRESCRIPTION DRUG MONITORING PROGRAM REVIEWED*: Not Applicable *COPY OF PRESCRIPTION DRUG MONITORING REPORT IN PATIENT SANGEETHA: Not Applicable Prescriptions: Azithromycin 500 mg PO DAILY 4 Days #4 tablet Instructions: Chronic Obstructive Pulmonary Disease Exacerbation, [id number] Referrals: PCP,None [Primary Care Provider] - Forms: ED Department Discharge Additional Instructions: The following information is given to patients seen in the emergency department who are being discharged to home. This information is to outline your options for follow-up care. We provide all patients seen in our emergency department with a follow-up referral. The need for follow-up, as well as the timing and circumstances, are variable de pending upon the specifics of your emergency department visit. If you don't have a primary care physician on staff, we will provide you with a referral. We always advise you to contact your personal physician following an emergency department visit to inform them of the circumstance of the visit and for follow-up with them and/or the need for any referrals to a consulting specialist. The emergency department will also refer you to a specialist when appropriate. This referral assures that you have the opportunity for follow-up care with a specialist. All of these measure are taken in an effort to provide you with optimal care, which includes your follow-up. Under all circumstances we always encourage you to contact your private physician who remains a resource for coordinating your care. When calling for follow-up care, please make the office aware that this follow-up is from your recent emergency room visit. If for any reason you are refused follow-up, please contact the [facility] Emergency Department at and asked to speak to the emergency department charge nurse. Please follow up with your primary care physician. If you do not have a primary care physician, see below: [facility] [address] [place] [address] My [facility] [address] [place] [address] You are seen today for increasing cough and shortness of breath. You are likely having a COPD exacerbation. We sent home with steroids and also antibiotics that she should take. If you have any other concerning signs or symptoms please return to the ED. Sepsis Event Note (ED) - Evaluation Sepsis Screening Result: Possible Sepsis Risk - Focused Exam Vital Signs: Vital Signs Temp Pulse Pulse Resp BP Pulse Ox 04/24/21 00:34 98.7 F 105 H 18 130/86 93 L 04/23/21 22:46 99.2 F 118 H 119 H 18 133/87 92 L - Assessment/Plan Plan: Patient is a 50-year-old female presents today for increasing cough fatigue and shortness of breath. She said to the low 90s on room air but she is a smoker. Will give steroids nebulizer labs x-ray and reassess patient.
--- NOTE | 2021-04-24 01:36 | CR ---
INDICATION: SOB/hypoxia CHEST, ONE VIEW An AP radiograph of the chest was performed. Comparison: 10/11/2020. The lungs appear clear and no pleural effusions are identified. The cardiomediastinal silhouette and pulmonary vasculature appear normal, as do the visualized bones. IMPRESSION: No acute intrathoracic abnormality identified. LOU GALVEZ MD [employer] Dictated by: Angel Galvez MD @ 04/24/2021 01:34:47 (Electronically Signed)
[2021-04-24] MEDS ORDERED: Azithromycin 250 MG Tab PO STA (01:56)
[2021-04-24 02:08] LABS: BLOOD UREA NITROGEN,BUN 10 mg/dL (7.0-18.0); CARBON DIOXIDE,CO2 25.7 mmol/L (21.0-32.0); CHLORIDE,CL 103 mmol/L (98-107); GLUCOSE RANDOM 77 mg/dL (74-106); POTASSIUM,K 4.2 mmol/L (3.5-5.1); SODIUM,NA 136 mmol/L (136-145)
== END 2021-04-24 02:35 | disposition home or self-care (01) ==
LOC: MW.ED 22:21
DX: J44.1 Chronic obstructive pulmonary disease with (acute) exacerbation (principal); F17.210 Nicotine dependence, cigarettes, uncomplicated; Z91.018 Allergy to other foods; Z88.5 Allergy status to narcotic agent; Z79.899 Other long term (current) drug therapy
CPT/HCPCS: 36415; 71045; 80053; 85025; 96374; 99285; A9270; J2930; J7030

== ENCOUNTER 2023-03-15 12:52 | Emergency (ER) | payer BC ==
[2023-03-15] MEDS ORDERED: Octyl 2-Cyanoacrylate 1 g/1 mL 1 APPLIC PEN TOP ONE (13:24)
[2023-03-15 13:54] VITALS: BP 138/90; PULSE 72
== END 2023-03-15 13:51 | disposition home or self-care (01) ==
LOC: MW.ED 12:52
DX: S61.210A Laceration without foreign body of right index finger without damage to nail, initial encounter (principal); J45.909 Unspecified asthma, uncomplicated; Z91.018 Allergy to other foods; Z88.8 Allergy status to other drugs, medicaments and biological substances; Z87.891 Personal history of nicotine dependence; W26.0XXA Contact with knife, initial encounter
CPT/HCPCS: 12001; 99282; A9270; 99283